=== PATIENT | female | born 1950 | race Caucasian/White ===

== ENCOUNTER 2016-05-09 11:45 | Emergency (ER) | payer OTHER ==
[~2016-05-09] VITALS: Ht 162.6 cm; Wt 61.2 kg
[~2016-05-09 11:45] MED LIST: ALDACTONE100 MG PO; ALDACTONE25 MG PO; BIOTIN1000 MCG PO; BUMETANIDE 1 MG1 M1; CENTRUM SILVER1 EAC4 PO; CINNAMON500 MG PO; CITRACAL D + H1 EACH PO; CLONAZEPAM 1 MG1 M1 PO; DESYREL300 MG PO; FISH OIL 1,001000 M2 PO; FLAX OIL1000 MG PO; GAS RELIEF 8080 MG PO; KEFLEX500 MG PO; LEVOTHYROXINE0.2 M1 PO; LOPERAMIDE 2 MG2 M1 PO; MAGNESIUM250 M1 PO; NORCO 5-325 TA1 EACH PO; PEPCID20 MG PO; PRESERVISION T1 EACH PO; PROBIOTIC1 EAC1 PO; TUMERIC; VITAMIN B-1100 M1 PO; VITAMIN D1000 UNI1 PO; XARELTO20 MG PO; ZINC50 MG PO; ZYRTEC10 M2 PO
[2016-05-09 14:16] LABS: MCHC 33.4 % (28.0-37.0); MCV 92.9 fL (80.0-100.0); PLATELET COUNT 174 thou/uL (150-400); RBC 2.91 mil/uL (4.20-5.00); RDW 15.6 % (10.5-14.5); WBC 18.7 thou/uL (4.0-11.0)
[2016-05-09 14:17] LABS: MANUAL DIFF YES
[2016-05-09 14:34] LABS: ABSOLUTE NEUTROPHILS 14.4 thou/uL (1.4-8.2); ANISOCYTOSIS SLIGHT; CREATININE 0.9 mg/dL (0.6-1.3); POTASSIUM 4.8 mmol/L (3.5-5.1); TOTAL CELL COUNT 100
[2016-05-09 14:39] LABS: ALBUMIN 2.1 g/dL (3.4-5.0); TOTAL BILIRUBIN 0.6 mg/dL (<0.1-1.0); TOTAL PROTEIN 5.9 g/dL (6.4-8.2)
[2016-05-09] MEDS ORDERED: NORCO 5-325 TA1 EACH PO (15:07)
== END 2016-05-09 15:10 | disposition home or self-care (01) ==
LOC: ER 11:45
PROVIDERS: Emergency Medicine
DX: S32.592A Other specified fracture of left pubis, initial encounter for closed fracture (principal); Z98.84 Bariatric surgery status; Z91.040 Latex allergy status; Z88.8 Allergy status to other drugs, medicaments and biological substances; W10.9XXA Fall (on) (from) unspecified stairs and steps, initial encounter; Y93.89 Activity, other specified; Y92.89 Other specified places as the place of occurrence of the external cause; Y99.8 Other external cause status